=== PATIENT | female | born 1990 | race American Indian/Alaskan Native ===

== ENCOUNTER 2016-10-16 05:07 | Emergency (ER) | payer MEDICAID ==
[2016-10-16 05:08] VITALS: BMI 25.2
[2016-10-16 05:25] VITALS: RESP 18; TEMP 98.4
--- NOTE | 2016-10-16 05:30 | ED PDOC ---
Arrival/HPI - General Time Seen by Provider: 10/16/16 05:14 Historian: Patient - History of Present Illness Narrative History of Present Illness (Text): 10/16/16 05:26 Anibal Irene is a 26 year old female who presents to the emergency department complaining of chest pain for past day. States that symptoms are worse while breathing. Patient has a history of hypertension, but states she is noncompliant with her medication. Denies any fever, chills, headache, dizziness , shortness of breath, nausea, vomiting, diarrhea, or any other complaints at this time. Time/Duration: 24 hours Symptom Onset: Gradual Severity Level: Mild Activities at Onset: Light Past Medical History - Provider Review Nursing Documentation Reviewed: Yes - Past History Past History: No Previous - Infectious Disease Hx of Infectious Diseases: None - Tetanus Immunization Tetanus Immunization: Unknown - Past Medical History Past Medical History: No Previous - Cardiac Hx Hypertension: Yes - Pulmonary Hx Respiratory Disorders: No - Neurological Hx Neurological Disorder: No - HEENT Hx HEENT Disorder: No - Renal Hx Renal Disorder: No - Endocrine/Metabolic Hx Endocrine Disorders: No - Hematological/Oncological Hx Blood Disorders: No - Integumentary Hx Dermatological Disorder: No - Musculoskeletal/Rheumatological Hx Musculoskeletal Disorders: No - Gastrointestinal Hx Gastrointestinal Disorders: No - Genitourinary/Gynecological Hx Genitourinary Disorders: No - Psychiatric Hx Anxiety: Yes Hx Depression: No Hx Substance Use: Yes (mj 2days ago) - Past Surgical History Past Surgical History: No Previous - Anesthesia Hx Anesthesia: No Hx Anesthesia Reactions: No Hx Malignant Hyperthermia: No - Suicidal Assessment Feels Threatened In Home Enviroment: No Family/Social History - Physician Review Nursing Documentation Reviewed: Yes Family/Social History: No Known Family HX Smoking Status: Light Smoker < 10 Cigarettes Daily Hx Alcohol Use: No Hx Substance Use: Yes (mj 2days ago) Hx Substance Use Treatment: No Allergies/Home Meds Allergies/Adverse Reactions: Allergies No Known Allergies Allergy (Verified 10/16/16 05:19) Home Medications: Home Meds Medication Instructions Recorded Confirmed amLODIPine [Norvasc] 5 mg PO DAILY 09/16/14 10/16/16 Norgestimate-Ethinyl Estradiol 1 tab PO DAILY 05/29/15 10/16/16 [Tri-Sprintec Tablet] Review of Systems - Physician Review All systems were reviewed & negative as marked: Yes - Review of Systems Constitutional: Normal. absent: Fatigue, Fevers Respiratory: Normal. absent: SOB, Cough Cardiovascular: Chest Pain Gastrointestinal: Normal, Vomiting. absent: Abdominal Pain, Diarrhea, Nausea Musculoskeletal: Normal Neurological: Normal. absent: Headache, Dizziness Psychiatric: Normal Physical Exam Vital Signs Reviewed: Yes Vital Signs Temp Pulse Resp BP Pulse Ox 10/16/16 07:01 84 18 147/85 97 10/16/16 05:20 98.4 F 86 18 143/104 H 100 Temperature: Afebrile Blood Pressure: Hypertensive Pulse: Regular Respiratory Rate: Normal Appearance: Positive for: Well-Appearing, Non-Toxic, Comfortable Pain Distress: None Mental Status: Positive for: Alert and Oriented X 3 - Systems Exam Head: Present: Atraumatic, Normocephalic Pupils: Present: PERRL Conjunctiva: Present: Normal Mouth: Present: Moist Mucous Membranes Neck: Present: Normal Range of Motion. No: Paraspinal Tenderness Respiratory/Chest: Present: Clear to Auscultation, Good Air Exchange. No: Respiratory Distress, Accessory Muscle Use Cardiovascular: Present: Regular Rate and Rhythm, Normal S1, S2. No: Murmurs Abdomen: Present: Normal Bowel Sounds. No: Tenderness, Distention, Peritoneal Signs Upper Extremity: Present: Normal Inspection. No: Cyanosis, Edema Lower Extremity: Present: Normal Inspection. No: Edema Neurological: Present: GCS=15, CN II-XII Intact, Speech Normal, Motor Func Grossly Intact, Normal Sensory Function Skin: Present: Warm, Dry, Normal Color. No: Rashes Psychiatric: Present: Alert, Oriented x 3, Normal Insight, Normal Concentration Medical Decision Making ED Course and Treatment: 10/16/16 05:31 Impression: A 26 year old female who presents to the emergency department complaining of chest pain for past day. Plan: -- EKG -- Labs, cardiac enzymes -- HCG --Urinalysis -- Reassess and disposition Progress Notes: 10/16/16 05:39 EKG reviewed by me: NSR @ 72 bpm. Normal axis. normal interval. - Lab Interpretations Lab Results: 10/16/16 06:00 10/16/16 06:00 Lab Results 10/16/16 06:40: Urine Color Yellow, Urine Appearance Clear, Urine pH 6.5, Ur Specific [place] 1.025, Urine Protein Negative, Urine Glucose (UA) Negative, Urine Ketones Negative, Urine Blood Negative, Urine Nitrate Negative, Urine Bilirubin Negative, Urine Urobilinogen 2.0 H, Ur Leukocyte Esterase Negative, Urine HCG, Qual Negative 10/16/16 06:00: Sodium 142, Potassium 3.8, Chloride 106, Carbon Dioxide 27, Anion Gap 13, BUN 10, Creatinine 0.9, Est GFR ( Amer) > 60, Est GFR (Non- Af Amer) > 60, Random Glucose 78, Calcium 9.3, Magnesium 2.1, Total Bilirubin 0.8, AST 25, ALT 28, Alkaline Phosphatase 46, Lactate Dehydrogenase 342, Total Creatine Kinase 104, Troponin I < 0.01, Total Protein 7.7, Albumin 4.4, Globulin 3.2, Albumin/Globulin Ratio 1.4 10/16/16 06:00: D-Dimer, Quantitative 0.19 10/16/16 06:00: WBC 3.0 L, RBC 4.55, Hgb 11.9 L, Hct 35.7 L, MCV 78.5 L, MCH 26.2, MCHC 33.3, RDW 13.2, Plt Count 213, MPV 10.3, Neutrophils % (Manual) 26 L , Lymphocytes % (Manual) 65 H, Monocytes % (Manual) 4, Eosinophils % (Manual) 5 H, Platelet Evaluation Normal - RAD Interpretation Radiology Orders: 10/16/16 06:44 CHEST PORTABLE [RAD] Stat - Scribe Statement The provider has reviewed the documentation as recorded by the Pacoibe Zoin Parker Provider Attestation: Provider Scribe Attestation: All medical record entries made by the Pacoibe were at my direction and personally dictated by me. I have reviewed the chart and agree that the record accurately reflects my personal performance of the history, physical exam, medical decision making, and the department course for this patient. I have also personally directed, reviewed, and agree with the discharge instructions and disposition. Disposition/Present on Arrival - Present on Arrival Any Indicators Present on Arrival: No History of DVT/PE: No History of Uncontrolled Diabetes: No Urinary Catheter: No History of Decub. Ulcer: No History Surgical Site Infection Following: None - Disposition Have Diagnosis and Disposition been Completed?: Yes Diagnosis: Chest pain Disposition: HOME/ ROUTINE Disposition Time: 07:10 Condition: GOOD Discharge Instructions (ExitCare): Chest Pain (ED), Chest Pain (DC)
[2016-10-16 06:27] LABS: ALB/GLOB RATIO 1.4 (1.1-1.8); ALBUMIN 4.4 g/dL (3.0-4.8); ALT/SGPT 28 U/L (7-56); AST/SGOT 25 U/L (15-39); BLOOD UREA NITROGEN 10 mg/dL (7-21); CALCIUM 9.3 mg/dL (8.4-10.5); GFR AFRICAN-AMERICAN > 60; GFR NON-AFRICAN AMERICAN > 60; MAGNESIUM 2.1 mg/dL (1.7-2.2)
[2016-10-16 06:50] LABS: HEMOGLOBIN 11.9 gm/dL (12.0-16.0); MEAN CELL VOLUME 78.5 fL (80.0-105.0); MEAN CORPUSCULAR HEMOGLOBIN 26.2 pg (25.0-35.0); MEAN CORPUSCULAR HGB CONC 33.3 g/dl (31.0-37.0); MEAN PLATELET VOLUME 10.3 fl (7.0-11.0); PLATELET COUNT 213 10^3/uL (120.0-450.0); RBC 4.55 10^6/uL (3.5-6.1); RED CELL DISTRIBUTION WIDTH 13.2 % (11.5-14.5)
[2016-10-16 07:02] VITALS: BP 147/85; PULSE 84; O2SAT 97
[2016-10-16 07:17] LABS: PH,URINE 6.5 (4.7-8.0); URINE BILIRUBIN NEGATIVE (NEGATIVE); URINE BLOOD NEGATIVE (NEGATIVE); URINE GLUCOSE (UA) NEGATIVE (NEGATIVE); URINE LEUKOCYTE ESTERASE NEGATIVE Leu/uL (NEGATIVE); URINE NITRATE NEGATIVE (NEGATIVE); URINE PROTEIN NEGATIVE mg/dL (<30 mg/dL)
[2016-10-16 07:21] LABS: URINE APPEARANCE CLEAR (CLEAR); URINE COLOR YELLOW (YELLOW)
[2016-10-16 07:27] LABS: HCG,QUALITATIVE URINE NEGATIVE (NEGATIVE)
[2016-10-16 07:29] LABS: TROPONIN I < 0.01 ng/mL
--- NOTE | 2016-10-16 07:52 | RAD ---
HISTORY: Chest pain COMPARISON: 02/07/2012. FINDINGS: LUNGS: The lungs are well inflated and clear. PLEURA: No significant pleural effusion identified, no pneumothorax apparent. CARDIOVASCULAR: Normal. OSSEOUS STRUCTURES: No significant abnormalities. VISUALIZED UPPER ABDOMEN: Normal. OTHER FINDINGS: None. IMPRESSION: No active pulmonary disease.
[2016-10-16 08:26] LABS: EOSINOPHIL 5 % (0.0-3.0); LYMPHOCYTE 65 % (22.0-35.0); MONOCYTE 4 % (1.0-6.0); NEUTROPHIL 26 % (50.0-70.0); PLATELET ESTIMATE NORMAL (NORMAL)
--- NOTE | 2016-10-16 16:38 | CARD ---
APPROVED REPORT EKG Measurement Heart [id number] <Conclusion> Normal sinus rhythm Normal ECG
== END 2016-10-16 07:32 | disposition home or self-care (01) ==
LOC: ED 05:07
DX: R07.9 Chest pain, unspecified (principal)

== ENCOUNTER 2017-11-22 23:31 | Emergency (ER) | payer OTHER, MEDICAID ==
[2017-11-22 23:31] VITALS: BMI 25.2
[2017-11-22 23:44] VITALS: TEMP 98.9
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
[2017-11-23 01:19] LABS: BASO # 0.01 K/mm3 (0.0-2.0); BASO % 0.3 % (0.0-3.0); EOS % 0.9 % (1.5-5.0); GRAN # 1.27 (1.4-6.5); GRAN % 37.2 % (50.0-68.0); HEMOGLOBIN 11.4 g/dL (12.0-16.0); LYMPH # 1.8 (1.2-3.4); MEAN CELL VOLUME 77.4 fl (80.0-105.0); MEAN CORPUSCULAR HEMOGLOBIN 25.8 pg (25.0-35.0); MEAN CORPUSCULAR HGB CONC 33.3 g/dl (31.0-37.0); MEAN PLATELET VOLUME 10.2 fl (7.0-11.0); MONO # 0.3 (0.1-0.6); MONO % 7.6 % (1.0-6.0); RBC 4.42 10^6/uL (3.5-6.1); RED CELL DISTRIBUTION WIDTH 13.3 % (11.5-14.5); WHITE BLOOD COUNT 3.4 10^3/ul (4.5-11.0)
[2017-11-23 01:29] LABS: ALB/GLOB RATIO 1.4 (1.1-1.8); ALBUMIN 4.4 g/dL (3.0-4.8); ALT/SGPT 27 U/L (7-56); AST/SGOT 23 U/L (14-36); BLOOD UREA NITROGEN 11 mg/dL (7-21); GFR NON-AFRICAN AMERICAN > 60
[2017-11-23 04:31] VITALS: O2SAT 100
[2017-11-23] MEDS ORDERED: Iohexol 350 MG/100 ML VIAL ONE (04:55)
[2017-11-23 05:57] VITALS: BP 148/81; PULSE 72; RESP 18
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
== END 2017-11-23 05:50 | disposition home or self-care (01) ==
LOC: ED 23:31
DX: Z04.1 Encounter for examination and observation following transport accident (principal); V49.9XXA Car occupant (driver) (passenger) injured in unspecified traffic accident, initial encounter; Z87.891 Personal history of nicotine dependence
CPT/HCPCS: 70450; 71046; 72125; 74177; 80053; 84702; 85025; 86850; 86900; 99285; Q9967